=== PATIENT | female | born 1955 ===

== ENCOUNTER 2023-01-20 06:11 | Day surgery (SDC) | payer OTHER ==
[~2023-01-20 06:11] MED LIST: AZOPT10 ML OP; CARTIA XT120 MG PO; GABAPENTIN100 M2 PO; NEVANAC3 ML OP; SINGULAIR10 MG PO; SYMBICORT 16010.2 GM IH; WELLBUTRIN SR150 MG PO; ZETIA10 MG PO; ZOCOR40 MG PO
[2023-01-20] MEDS ORDERED: PERCOCET 5-3251 EACH PO (10:30)
== END 2023-01-20 13:00 | disposition home or self-care (01) ==
LOC: CIR.AMB 06:11
PROVIDERS: ATTEND Surgery
DX: D35.1 Benign neoplasm of parathyroid gland (principal); E21.0 Primary hyperparathyroidism; Z91.041 Radiographic dye allergy status; Z88.6 Allergy status to analgesic agent; Z20.822 Contact with and (suspected) exposure to COVID-19